=== PATIENT | female | born 1955 | race Caucasian/White ===

== ENCOUNTER 2022-02-12 12:51 | Outpatient (CLI) | payer MEDICARE, SELFPAY ==
--- NOTE | 2022-02-12 14:00 | CRLHL7_ITS ---
For Patients: As a result of the Century Cures Act, medical imaging exams and procedure reports are released immediately into your electronic medical record. You may view this report before your referring provider. If you have questions, please contact your health care provider. Indication: SOLITARY PULMONARY NODULE Technique: Noncontrast CT chest Please note that all CT scans at this facility use dose modulation, iterative reconstruction, and/or weight-based dosing when appropriate to reduce radiation dose to as low as reasonably achievable. Comparison: CT abdomen 09/26/2021 Findings: Improved appearance of the lung bases compared to the prior study with clearing of airspace densities. Patchy foci of thickened interlobular septa remain within the periphery of the right lower lobe and to a lesser extent within the left lower lobe. Similar findings also present in both upper lobes. No pleural effusion. There is no pneumothorax. A pleural based nodule is present along the right major fissure measuring 9 millimeters, series 3, image 36. This area was not included on the prior exam. No pleural effusion. No pneumothorax. No mediastinal, hilar or axillary adenopathy. Normal breast tissue. Gallbladder is nondistended. No calcified gallstones or biliary obstruction. Hiatal hernia is similar, measuring 6 centimeters. Mild vascular calcifications. No fracture. Impression: Clearing of infiltrates within both lower lobes. Mild pulmonary fibrosis noted in a peripheral distribution bilaterally. No adenopathy. Incidental 9 millimeter pleural-based nodule on the right, considered benign due to its pleural-based morphology. 6 centimeter hiatal hernia. Please note that all CT scans at this facility use dose modulation, iterative reconstruction, and/or weight-based dosing when appropriate to reduce radiation dose to as low as reasonably achievable. Dictated by Michael Middleton MD @ 02/12/2022 2:05:54 PM (Electronically Signed)
== END 2022-02-12 12:52 | disposition home or self-care (01) ==
LOC: CT 12:57
PROVIDERS: PCP Family Medicine; Visit Provider Family Medicine
DX: R91.1 Solitary pulmonary nodule (principal); J84.10 Pulmonary fibrosis, unspecified; K44.9 Diaphragmatic hernia without obstruction or gangrene
CPT/HCPCS: 71250; 80053; 80061

== ENCOUNTER 2022-03-04 13:28 | Emergency (ER) | payer MEDICARE, SELFPAY ==
[2022-03-04 14:05] VITALS: BP 104/59; PULSE 69; RESP 18; TEMP 36.9; O2SAT 97; BMI 41.6
--- NOTE | 2022-03-04 16:19 | CRLHL7_ITS ---
For Patients: As a result of the Cures Act, medical imaging exams and procedure reports are released immediately into your electronic medical record. You may view this report before your referring provider. If you have questions, please contact your health care provider. Indication: Fall onto left hip Technique: Left hip 3 views Comparison: None Findings: No acute fracture dislocation of the left hip. Visualized pelvis appears unremarkable. No significant degenerative arthrosis of the left hip. Impression: No fracture or dislocation of the left hip. Dictated by Daniel Mcdonald MD @ 03/04/2022 5:56:31 PM (Electronically Signed)
--- NOTE | 2022-03-04 16:19 | CRLHL7_ITS ---
For Patients: As a result of the Cures Act, medical imaging exams and procedure reports are released immediately into your electronic medical record. You may view this report before your referring provider. If you have questions, please contact your health care provider. Indication: Fall, recent surgery Technique: Right knee 2 views Comparison: None Findings/Impression: No acute fracture or traumatic malalignment is seen within the right knee on this two-view radiograph series. Suspect small knee effusion. Mild tricompartmental arthrosis. Suspect knee joint loose body. Dictated by Daniel Mcdonald MD @ 03/04/2022 5:45:29 PM (Electronically Signed)
--- NOTE | 2022-03-04 16:19 | CRLHL7_ITS ---
For Patients: As a result of the Century Cures Act, medical imaging exams and procedure reports are released immediately into your electronic medical record. You may view this report before your referring provider. If you have questions, please contact your health care provider. INDICATION: Fall. Vertigo. TECHNIQUE: CT of the head without contrast. Coronal and sagittal reformats are included. COMPARISON: None. FINDINGS: No acute intracranial hemorrhage. No mass effect or midline shift. No hydrocephalus or extra-axial collections. Patchy white matter hypoattenuation, typical for chronic microvascular ischemic change. No acute osseous abnormalities. Mastoid air cells and paranasal sinuses are clear. Normal soft tissues. IMPRESSION: IMPRESSION: 1. No acute intracranial abnormalities. Please note that all CT scans at this facility use dose modulation, iterative reconstruction, and/or weight-based dosing when appropriate to reduce radiation dose to as low as reasonably achievable. Dictated by Hebert Cramer MD @ 03/04/2022 5:32:14 PM (Electronically Signed)
--- NOTE | 2022-03-04 16:19 | CRLHL7_ITS ---
For Patients: As a result of the Century Cures Act, medical imaging exams and procedure reports are released immediately into your electronic medical record. You may view this report before your referring provider. If you have questions, please contact your health care provider. INDICATION: Fall with neck pain. TECHNIQUE: CT of the cervical spine without contrast. Coronal and sagittal reformats are included. COMPARISON: None. FINDINGS: Superior endplate deformities at C7 and T1 with minimal vertebral body height loss. Craniocervical junction alignment is maintained. Mild to moderate disc height loss most prominent at C5-6. Trace anterolisthesis at C3-4 and C4-5. At C5-6, right uncovertebral arthrosis with advanced neural foraminal stenosis. No high grade spinal canal stenosis as far as visualized. Imaged intracranial structures, cervical and paraspinous soft tissues are normal in appearance. The visualized pulmonary apices are clear. IMPRESSION: 1. Age-indeterminate superior endplate deformities at C7 and T1 with minimal vertebral body height loss. No fractures elsewhere. 2. Scattered cervical spondylosis. Please note that all CT scans at this facility use dose modulation, iterative reconstruction, and/or weight-based dosing when appropriate to reduce radiation dose to as low as reasonably achievable. Dictated by Hebert Cramer MD @ 03/04/2022 5:37:03 PM (Electronically Signed)
--- NOTE | 2022-03-04 16:19 | CRLHL7_ITS ---
For Patients: As a result of the Century Cures Act, medical imaging exams and procedure reports are released immediately into your electronic medical record. You may view this report before your referring provider. If you have questions, please contact your health care provider. INDICATION: Pain from T1 through T5 TECHNIQUE: Thoracic spine 3 view. COMPARISON: CT chest February 12, 2022. FINDINGS/IMPRESSION: Portions of the upper thoracic spine obscured due to superimposed osseous and soft tissue structures. No evidence of vertebral body height loss or traumatic malalignment. Mild multilevel anterior osteophytosis and intervertebral disc space narrowing. Dictated by Daniel Mcdonald MD @ 03/04/2022 5:48:03 PM (Electronically Signed)
[2022-03-04] MEDS: ACETAMINOPHEN 325 MG TABLET 650 MG PO (16:49)
--- NOTE | 2022-03-04 18:18 | CRLHL7_ITS ---
For Patients: As a result of the Century Cures Act, medical imaging exams and procedure reports are released immediately into your electronic medical record. You may view this report before your referring provider. If you have questions, please contact your health care provider. Indication: Buttock and hip pain Technique: CT examination of the pelvis was performed. Contrast was not administered. Imaging was acquired from the lower lumbar spine through the immediate subtrochanteric area bilaterally. Sagittal and coronal reformatted imaging was performed. Please note that all CT scans at this facility use dose modulation, iterative reconstruction, and/or weight-based dosing when appropriate to reduce radiation dose to as low as reasonably achievable. Comparison: None Findings: Regarding the soft tissues within the pelvis, there is fecal retention and diverticulosis. No diverticulitis. No free fluid, adenopathy or mass visualized. Regarding the soft tissues of the buttocks and pelvis, the muscles are symmetric and normal in appearance. No focal mass or collection. No abnormal bursal fluid collection. Regarding the osseous structures, there are degenerative changes of the visualized lower lumbar spine. Osseous structures of the pelvis including the hip joints appear normal. Impression: 1. There are degenerative changes lower lumbar spine. Osseous structures of the pelvis and left hip joint are otherwise unremarkable. 2. The soft tissues at and near the left hip joint and involving the left buttocks appear normal by CT. 3. Incidental diverticulosis Please note that all CT scans at this facility use dose modulation, iterative reconstruction, and/or weight-based dosing when appropriate to reduce radiation dose to as low as reasonably achievable. Dictated by Regis Moraes MD @ 03/04/2022 7:01:04 PM (Electronically Signed)
[2022-03-04] MEDS: OXYCODONE 5 MG TABLET 2.5 MG PO (18:30)
[2022-03-04] MEDS: ONDANSETRON ODT 4 MG TAB PO (18:30)
--- NOTE | 2022-03-04 20:17 | ED.NURSE ---
isntymed call about interaction btw sertaline and steven, md spaulding updated, verbal to tell [facility] to continue with prescription with no changes.
--- NOTE | 2022-03-05 00:47 | ED.GENADULT ---
HPI - General Adult General Date Seen: 03/05/22 Chief complaint: Hip Injury/Pain Stated complaint: Fall Hip and Head Pain Time Seen by Provider: 03/04/22 16:00 Source: patient, RN notes reviewed and old records reviewed Mode of arrival: wheelchair Limitations: language barrier History of Present Illness HPI narrative: Patient is a very pleasant [place]ian-speaking woman who has a history of hyperlipidemia anxiety and depression and recent knee surgery who comes to the emergency room for evaluation regarding dizziness, head and neck pain, left buttock pain and right knee pain. Patient states that she was walking into house when her feet became entangled in the rug and she fell forward. This happened on FridayMarch 02. She notes that she felt something crack in her left hip. Since that time she has had difficulty ambulating and uses a cane. She also notes that her head hurts she notes that this hurts from the back of her neck up into her forehead. It is associated with feeling dizzy when she gets up. She has been using Tylenol for pain and it has not really helped. Movement certainly increases her pain. She also shows me a video of her buttocks where it appears that she has a large area of ecchymosis. She has not had a loss of bowel or bladder control nor has she experience fever chills or cough. She also notes that when she fell she may have re-injured her right knee. She notes that in [place] in June she had arthroscopy and states that it was filled with fluid. Related Data Home Medications Medication Instructions Recorded Confirmed diclofenac sodium 1 % topical gel 2-4 TOPICAL QID 02/06/22 02/06/22 Previous Rx's Medication Instructions Recorded omeprazole 40 mg capsule,delayed 40 mg PO QDAY #90 cap 02/06/22 release rosuvastatin 20 mg tablet 20 mg PO QDAY #90 tab 02/06/22 sertraline 100 mg tablet 100 mg PO DAILY #90 tab 02/06/22 celecoxib 100 mg capsule 100 mg PO BID PRN #60 cap 02/15/22 Allergies Allergy/AdvReac Type Severity Reaction Status Date / Time No Known Allergies Allergy Unverified 02/06/22 09:57 Review of Systems Status of ROS: Reports: 10 or more systems reviewed and unremarkable except as noted in History and below Const: Reports: fatigue; Denies: fever or chills Eyes: Denies: change in vision or blurry vision ENMT: Reports: neck pain; Denies: throat pain or difficulty swallowing Cardio: Denies: chest pain, palpitations, swelling of feet/ankles or shortness of breath with exertion Resp: Denies: shortness of breath, cough or wheezing GI: Denies: abdominal pain, nausea, vomiting or difficulty swallowing : Denies: painful urination Musculo: Reports: back pain, neck pain and extremity pain Integ/Breast: Denies: rash Neuro: Reports: headache and dizziness; Denies: numbness in extremities Psych: Reports: anxiety Endo: Reports: fatigue Allergy/Immuno: Denies: wheezing PFSH PFS Medical History History of vitamin D deficiency Surgical History History of arthroscopy of right knee (06/2021) History of delivery History of right knee surgery Family History Brother Prostate cancer Throat cancer Mother Tremors of nervous system Social History Narrative: . Moved to this area from [place] in the fall of 2020 to be closer to family. Originally from [place] I believe. Never smoker. Activity very limited. Smoking Status: Never smoker Exam Narrative: Exam Narrative: Patient is alert and oriented. EOM is full with no nystagmus in extremes of view head is atraumatic normocephalic. She has tenderness noted over the paraspinous musculature on her cervical spine and over the T1-3 4 5 vertebrae. No evidence of bruising at this site. Heart is with a regular rate and rhythm and lungs are clear abdomen is soft nontender. She has large area of ecchymosis noted on her right buttock extending into the gluteal cleft from the posterior and superior SI area she has pain when standing. She is preferring not to move and reclines in chair in exam 4. Ms. Sensation is fully intact. Const: Vital Signs, click to edit/add: Vital Signs - 24 hr 03/04/22 14:05 Temperature 98.4 F Pulse Rate [Right Pulse Oximeter] 69 Respiratory Rate 18 Blood Pressure [Ri ght Upper Arm] 104/59 L Pulse Oximetry 97 Documenting provider has reviewed patient's vital signs: yes Course Course Hospital Course: With the assistance of tufting machine operator I do suggest CTs of the head neck. I suggest plain films of the thoracic spine left hip and pelvis as well as right knee. Reevaluation(s) Reevaluation #1: Patient is requesting Tylenol and this is given to her 650 mg p.o.. She notes that it really has not helped very much and thus we do give her 2.5 mg of oral oxycodone. Discussed negative head with patient. Cervical spine does show some abnormalities of age indeterminate status. A soft collar is placed. Discuss that the pelvic x-ray is negative. Would suggest CT as patient still is unable to stand. Vital Signs Vital signs: Initial Vital Signs Temperature 98.4 F 03/04/22 14:05 Temperature Source Temporal Artery Scan 03/04/22 14:05 Pulse Rate 69 03/04/22 14:05 Pulse Rhythm 03/04/22 14:05 Respiratory Rate 18 03/04/22 14:05 Blood Pressure 104/59 L 03/04/22 14:05 Blood Pressure Mean 74 03/04/22 14:05 Pulse Oximetry 97 03/04/22 14:05 Oxygen Delivery Method 03/04/22 14:05 Vital Signs Temperature 98.4 F 03/04/22 14:05 Pulse Rate 69 03/04/22 14:05 Respiratory Rate 18 03/04/22 14:05 Blood Pressure 104/59 L 03/04/22 14:05 Pulse Oximetry 97 03/04/22 14:05 Temperature 98.4 F 03/04/22 14:05 Pulse Rate 69 03/04/22 14:05 Respiratory Rate 18 03/04/22 14:05 Blood Pressure 104/59 L 03/04/22 14:05 Pulse Oximetry 97 03/04/22 14:05 Medical Decision Making MDM Narrative Medical decision making narrative: 1. Concussion-patient has a negative head CT but describes dizziness when standing up. Suggest light activity at this time. No evidence epidural or subdural hematoma. 2. Cervical strain-patient does have superior endplate abnormalities at C7 and T1. No obvious bony fractures. Placed in a soft collar at this time. Suggest follow-up with primary MD for MRI. No upper extremity motor deficits. 3. Thoracic spine pain-no obvious fracture but body habitus inhibited ability to completely visualize this area. No external signs of trauma or ecchymosis. 4. Left hip and right buttock pain-no evidence of fracture on plain film or subsequent CT. 5. Right knee pain-patient does have fluid in right knee and a free-floating body that is small. I am unsure if this is an acute finding but do suggest follow-up with orthopedics. 6. Disposition-patient will be discharged home. We have given her a small amount of oxycodone to use for pain not relieved by Tylenol. I have asked her to make sure she uses a stool softener and surely this will make her constipated. Initially her a believe is with her. Her daughter now comes and is speaks [place] and thus we do speak of all of the issues today. Patient is to return to the emergency room as needed. I do suggest follow-up for MRI of the cervical spine. This will include the upper aspect of the thoracic spine as well. Medical Records Medical records reviewed: Yes I reviewed the patient's medical records Imaging Data CT scan - head: Attestation: I have reviewed the pertinent imaging results. My impression: No acute findings Radiologist's impression: No acute finding Cervical spine: Attestation: I have reviewed the pertinent imaging results. My impression: No obvious fractures. Radiologist's impression: Age indeterminate superior endplate deformities at C7 and T1 with minimal vertebral body height loss. Scattered cervical spondylosis Thoracic spine: Attestation: I have reviewed the pertinent imaging results. My impression: No obvious acute fractures Radiologist's impression: No fractures. However body habitus inhibits ability to clearly see details of upper spine. Pelvis and left hip: Attestation: I have reviewed the pertinent imaging results. My impression: No acute fractures on both plain film and CT Radiologist's impression: No acute fractures on plain film and CT Discharge Plan Discharge Clinical Impression: Concussion, Acute pain of left hip, Acute pain of left knee, Cervical pain Patient Disposition: Home, Self-Care Condition: Improved Additional Instructions: Soft cervical collar. Use a walker for more support when ambulating For pain you may use Tylenol as needed. For continued pain you may use oxycodone. Oxycodone is a narcotic and you will want to make sure you take a stool softener with it. This may also make you dizzy so be very careful when walking. Follow-up with your regular doctor for: MRI of the neck if you have continued pain Recheck of your right knee because it has some fluid in it on x-ray. Rest and push fluids. Prescriptions: No Action Prevnar 13 (PF) 0.5 mL syringe 0.5 ml IM ONCE Qty: 1 0RF diclofenac sodium 1 % gel 2-4 topical QID 0RF omeprazole 40 mg capsule,delayed release(DR/EC) 40 mg PO QDAY Qty: 90 3RF sertraline 100 mg tablet 100 mg PO DAILY Qty: 90 3RF rosuvastatin 20 mg tablet 20 mg PO QDAY Qty: 90 3RF celecoxib 100 mg capsule 100 mg PO BID PRN (Reason: pain) Qty: 60 3RF Follow Up/Referrals: Moses Mota MD [Primary Care Provider] - Stand Alone [facility] Inst[facility]
== END 2022-03-04 20:30 | disposition home or self-care (01) ==
PROVIDERS: Emergency Provider Family Medicine; PCP Family Medicine
DX: S06.0X0A Concussion without loss of consciousness, initial encounter (principal); W01.0XXA Fall on same level from slipping, tripping and stumbling without subsequent striking against object, initial encounter; M25.552 Pain in left hip; M25.562 Pain in left knee; M54.2 Cervicalgia
CPT/HCPCS: 70450; 72070; 72125; 72192; 73502; 73560; 99284; A9270

== ENCOUNTER 2022-09-12 14:10 | Outpatient (CLI) | payer MEDICARE, SELFPAY ==
--- NOTE | 2022-09-12 14:40 | CRLHL7_ITS ---
For Patients: As a result of the Century Cures Act, medical imaging exams and procedure reports are released immediately into your electronic medical record. You may view this report before your referring provider. If you have questions, please contact your health care provider. BILATERAL DIGITAL SCREENING MAMMOGRAM WITH TOMOSYNTHESIS AND COMPUTER-AIDED DETECTION CLINICAL HISTORY: Routine screening exam. COMPARISON: None. TECHNIQUE: Digital mammogram in CC and MLO projections including computer-aided detection (CAD). Tomosynthesis and CAD utilized. BREAST COMPOSITION: There are areas of scattered fibroglandular density. FINDINGS: RIGHT Breast: Focal asymmetric density upper outer quadrant 7 cm from the nipple. LEFT Breast: No suspicious findings. IMPRESSION: RIGHT breast asymmetry/mass. RECOMMENDATIONS: Additional mammographic views of the RIGHT breast including 3D spot compression CC/MLO. RIGHT breast ultrasound may also be required. BI-RADS Category 0: Incomplete: Need Additional Imaging Evaluation and/or Prior Mammograms for Comparison [facility] will contact the patient for follow-up. A lay language report of this examination will be provided to the patient. Dictated by Michael Middleton MD @ 09/13/2022 8:11:32 AM jj/Dictated by: Michael Middleton MD @ 09/13/2022 8:11:00 AM (Electronically Signed)
== END 2022-09-12 14:11 | disposition home or self-care (01) ==
LOC: MAMMO 14:13
PROVIDERS: PCP Family Medicine; Visit Provider Family Medicine
DX: Z12.31 Encounter for screening mammogram for malignant neoplasm of breast (principal); N63.10 Unspecified lump in the right breast, unspecified quadrant
CPT/HCPCS: 77063; 77067; T1013

== ENCOUNTER 2022-09-13 08:01 | Outpatient (CLI) | payer MEDICARE, SELFPAY ==
--- NOTE | 2022-09-13 08:15 | CRLHL7_ITS ---
For Patients: As a result of the Century Cures Act, medical imaging exams and procedure reports are released immediately into your electronic medical record. You may view this report before your referring provider. If you have questions, please contact your health care provider. Indication: Headache. Technique: Multiplanar, multisequence MRI of the brain was performed without and with intravenous contrast. Contrast: 15 cc Dotarem. Comparison: None relevant available at this institution. Findings: Slight thinning of the corpus callosum. The pituitary gland and clivus appear intact. Mild degenerative change visualized upper cervical spine. There is no restricted diffusion. No intracranial hemorrhage. The ventricles are proportionate to the cerebral sulci. The 4th ventricle appears midline. The basal cisterns appear patent. No abnormal extra-axial fluid collection identified. Mild parenchymal volume loss. Scattered T2 FLAIR hyperintense foci within the subcortical and periventricular white matter, favored to represent chronic ischemic microvascular disease. There is no intracranial mass, abnormal mass-effect or midline shift identified. No abnormal enhancement. Major intracranial vascular flow voids appear grossly intact. Both globes are preserved. Mild paranasal sinus mucosal disease. Impression: 1. No acute/subacute infarct. 2. Mild chronic ischemic microvascular disease. Dictated by Prosper Canseco MD @ 09/13/2022 11:40:34 AM (Electronically Signed)
== END 2022-09-13 08:02 | disposition home or self-care (01) ==
PROVIDERS: PCP Family Medicine; Visit Provider Family Medicine
DX: R51.9 Headache, unspecified (principal); I67.82 Cerebral ischemia; G89.29 Other chronic pain
CPT/HCPCS: 70553; T1013; A9575

== ENCOUNTER 2022-09-19 08:35 | Outpatient (CLI) | payer MEDICARE, SELFPAY ==
--- NOTE | 2022-09-19 08:45 | CRLHL7_ITS ---
For Patients: As a result of the Cures Act, medical imaging exams and procedure reports are released immediately into your electronic medical record. You may view this report before your referring provider. If you have questions, please contact your health care provider. DIGITAL DIAGNOSTIC RIGHT MAMMMOGRAM USING TOMOSYNTHESIS AND COMPUTER-AIDED DETECTION RIGHT BREAST ULTRASOUND CLINICAL HISTORY: RIGHT breast mass/asymmetry. COMPARISON: 09/12/2022. TECHNIQUE: Digital RIGHT mammogram in two projections. Tomosynthesis and CAD utilized. Real-time ultrasound imaging of RIGHT breast with imaging documentation. BREAST COMPOSITION: There are areas of scattered fibroglandular density. FINDINGS: 3D spot compression CC/MLO RIGHT breast mammogram images submitted. Decreased conspicuity of previously noted asymmetric density. No architectural distortion or suspicious masses. Benign calcifications. Targeted RIGHT breast ultrasound performed in the lower outer quadrant 8 o`clock 4 cm from the nipple corresponding with the density on screening mammogram. No fibrocystic changes or solid masses. IMPRESSION: Normal additional views RIGHT breast and targeted ultrasound RIGHT breast. No evidence of malignancy. RECOMMENDATIONS: Annual BILATERAL screening mammography. Results and recommendations discussed with the patient through an foreign language interpreter. BI-RADS Category 2: Benign A lay language report of this examination will be provided to the patient. Dictated by Michael Middleton MD @ 09/19/2022 9:56:48 AM jj/Dictated by: Michael Middleton MD @ 09/19/2022 9:56:00 AM (Electronically Signed)
--- NOTE | 2022-09-19 09:15 | CRLHL7_ITS ---
For Patients: As a result of the Cures Act, medical imaging exams and procedure reports are released immediately into your electronic medical record. You may view this report before your referring provider. If you have questions, please contact your health care provider. PLEASE SEE DIGITAL DIAGNOSTIC RIGHT MAMMOGRAM PERFORMED SAME DAY CRL:[email or web address] [email or web address]/Dictated by: Michael Middleton MD @ 09/19/2022 9:56:00 AM (Electronically Signed)
== END 2022-09-19 08:36 | disposition home or self-care (01) ==
LOC: US 08:36
PROVIDERS: PCP Family Medicine; Visit Provider Family Medicine
DX: N63.10 Unspecified lump in the right breast, unspecified quadrant (principal); R92.8 Other abnormal and inconclusive findings on diagnostic imaging of breast
CPT/HCPCS: 76642; 77065; G0279

== ENCOUNTER 2023-05-07 10:33 | Outpatient (CLI) | payer OTHER, SELFPAY | END 2023-05-07 10:34 | disposition home or self-care (01) | PROVIDERS: PCP Family Medicine; Visit Provider Family Medicine | DX: E78.5 Hyperlipidemia, unspecified (principal) | CPT/HCPCS: 80053; 80061 ==

== ENCOUNTER 2023-07-07 12:19 | Emergency (ER) | payer OTHER, SELFPAY ==
[2023-07-07 12:27] VITALS: BP 109/80; PULSE 81; RESP 16; TEMP 36.1; O2SAT 94; BMI 43.5
== END 2023-07-07 16:11 | disposition left against medical advice (07) ==
LOC: ED 15:55
PROVIDERS: Emergency Provider Emergency Medicine Emergency Medical Services; PCP Family Medicine
DX: Z53.21 Procedure and treatment not carried out due to patient leaving prior to being seen by health care provider (principal)

== ENCOUNTER 2023-11-25 10:29 | Outpatient (CLI) | payer MEDICARE, SELFPAY ==
--- OUTSIDE RECORDS SUMMARY | 2023-11-25 10:32 | XMS_ITS | Clinical Summary ---
Author Name Unknown Organization [facility] Address [place], [place] [address] Care Team Providers Care Supervisor [employer] Name Role Phone Michela Corona Primary Care Provider Unavail able Allergies Active Allergy Reactions Criticality Noted Date Comments Aspirin *Unknown 01/30/2020 Medications Medication Sig Dispensed Refills Start Date End Date Status omeprazole (PRILOSEC) 10 mg capsule Take 1 Capsule (10 mg) by mouth once daily before a meal. 0 02/13/2021 Active cyanocobalamin (Vitamin B-12) 1,000 mcg tabletIndications:Vi tamin B12 deficiency Take 1 Tablet (1,000 mcg) by mouth once daily. Taking 1 tablet a week 90 Tablet 3 03/01/2021 Active gabapentin (NEURONTIN) 100 mg capsuleIndications:B ilateral leg numbness Take 2 caps at night of 1 week, then increase to 3 caps(300mg) at night. 90 Capsule 2 05/15/2021 Active meclizine (ANTIVERT) 25 mg tabletIndications:Di zziness Take 1 Tablet (25 mg) by mouth 3 times daily if needed for Vertigo, Motion Sickness or Nausea/Vomiting. 30 Tablet 08/22/2022 Active benzonatate (TESSALON) 100 mg capsuleIndications:V iral URI with cough Take 1 Capsule (100 mg) by mouth 3 times daily if needed for Cough. 20 Capsule 05/24/2023 Active Active Problems No known active problems Social History Tobacco Use Types Packs/Day Years Used Date Smoking Tobacco: Never Smokeless Tobacco: Never Tobacco Cessation:Counseling Given: Yes Alcohol Use Standard Drinks/Week Comments Not Currently 0 (1 standard drink = 0.6 oz pur e alcohol) PHQ-2 Answer Date Recorded PHQ-2 TOTAL SCORE 3 03/01/2021 Social Connections Answer Date Recorded Frequency of Communication with Friends and Fami ly Not on file 08/11/2021 Financial Resource Strain Answer Date R ecorded Difficulty of Paying Living Expenses Not on file 08/11/2021 Difficulty of Paying Living Expenses Not on file 08/11/2021 Sex and Gender Information Value Date Recorded Sex Assigned at Not on file Gender Identity Not on file Sexual Orientation Not on file Obstetrics History Last Filed Vital Signs Vital Sign Reading Time Taken Comments Blood Pressure 106/81 07/28/2023 6:12 PM [employer] Pulse 84 07/28/2023 6:12 PM [employer] Temperature 36.7 ??C (98.1 ??F) 07/28/2023 6:12 PM CS T Respiratory Rate 20 07/28/2023 6:12 PM [employer] Oxygen Saturation 96% 07/28/2023 6:12 PM [employer] Inhaled Oxygen Concentration - - Weight 97.5 kg (215 lb) 07/28/2023 6:12 PM [employer] Height 154.9 cm (5' 1) 07/28/2023 6:12 PM [employer] Body Mass Index 40.62 07/28/2023 6:12 PM [employer] Plan of Treatment Health Maintenance Due Date Last Done Comments Tdap 01/09/1967 Hepatitis C screening for age 18-79 01/09/1974 Tetanus booster 1976 Lipids for age 45-75 01/09/2001 Mammogram for age 45-75 01/09/2001 Zoster (shingles) series for age 50+ (1 of 2) 01/09/2006 DEXA/DXA scan for age 65+ 01/09/2021 Pneumococcal series for age 65+ (1 of 1 - PCV) 01/09/2021 BMI (ht and wt on same day) for age 18+ 02/13/2022 02/13/2021 Depression screening for age 12+ 03/01/2022 03/01/2021, 03/01/2021, 03/01/2021 COVID-19 vaccine series (2022- season) 2023 Fecal testing non-DNA (FIT,FOBT,iFOBT) for age 45-75 08/02/2023 08/02/2022 Influenza for age 65+ 04/11/2024 Procedures Procedure Name Priority Date/Time Associated Diagnosis Comments OCCULT BLOOD IFOBT STOOL Routine 08/02/2022 12:54 PM [employer] Screening for colorectal cancer from Last 3 Months or Most Recently Relevant to Health Maintenance Results * OCCULT BLOOD IFOBT STOOL (08/02/2022 12:54 PM [employer]) STOOL BLOOD ,IFOBT Negative Negative 08/02/2022 2:10 PM [employer] [facility] Stool STOOL SPECIMEN / Unknown Non-Blood / Unknown 08/02/2022 12:54 PM [employer] 08/02/2022 12:54 PM [employer] Sheri Boston DO LABORATORY [facility] [address] [place] [address], from Last 3 Months or Most Recently Relevant to Health Maintenance Care Teams Supervisor [employer] Relationship Specialty Start Date End Date Michela Corona PCP - General 08/22/22
--- NOTE | 2023-11-25 12:03 | W.ANESCHARGE ---
Anesthesia Charges Start Date/Time Anesthesia Start Date: 11/25/23 Anesthesia Start Time: 11:03 Stop Date/Time Anesthesia Stop Date: 11/25/23 Anesthesia Stop Time: 11:59
--- NOTE | 2023-11-25 12:24 | W.ANESCHARGE ---
Anesthesia Charges Start Date/Time Anesthesia Start Date: 11/25/23 Anesthesia Start Time: 11:03 Stop Date/Time Anesthesia Stop Date: 11/25/23 Anesthesia Stop Time: 11:59
== END 2023-11-25 10:30 | disposition home or self-care (01) ==
LOC: OP CLINIC 10:30
PROVIDERS: PCP Family Medicine; Visit Provider Surgery
DX: Z12.11 Encounter for screening for malignant neoplasm of colon (principal); K63.5 Polyp of colon; K57.30 Diverticulosis of large intestine without perforation or abscess without bleeding; K64.9 Unspecified hemorrhoids; K62.1 Rectal polyp; R13.10 Dysphagia, unspecified; K44.9 Diaphragmatic hernia without obstruction or gangrene; K22.89 Other specified disease of esophagus
CPT/HCPCS: 00813; 43239; 45385; 88305; 88342; T1013; J2704

== ENCOUNTER 2024-08-18 13:58 | Outpatient (CLI) | payer MEDICARE, SELFPAY ==
--- NOTE | 2024-08-18 14:00 | CRLHL7_ITS ---
For Patients: As a result of the Century Cures Act, medical imaging exams and procedure reports are released immediately into your electronic medical record. You may view this report before your referring provider. If you have questions, please contact your health care provider. BILATERAL SCREENING MAMMOGRAM WITH COMPUTER-AIDED DETECTION AND TOMOSYNTHESIS TECHNIQUE: CC and MLO views were obtained. These mammographic images have been obtained using full-field digital technique. These mammographic images were interpreted with the benefit of computer-aided detection. Breast Tomosynthesis was used in this interpretation. COMPARISON FILM: 09/19/22, 09/12/22. FINDINGS: There are scattered areas of fibroglandular density. IMPRESSION: There is no radiographic evidence for malignancy. ASSESSMENT: BI-RADS Category 2: Benign RECOMMENDATION: Routine screening mammogram in 1 year. A lay language report of this examination will be provided to the patient. Michael Middleton M.D. Diagnostic Radiologist [email or web address] SP/Dictated by: Michael Middleton MD @ 08/19/2024 9:33:00 AM (Electronically Signed)
--- NOTE | 2024-08-18 14:30 | CRLHL7_ITS ---
For Patients: As a result of the Century Cures Act, medical imaging exams and procedure reports are released immediately into your electronic medical record. You may view this report before your referring provider. If you have questions, please contact your health care provider. XR DXA Bone Mineral Density (BMD) Reason for exam: Asymptomatic menopausal state. Current height (inches): 62.0 Weight (lbs.): 210.0 Menopause age: 59 Ethnicity: White 1. Have you had a previous hip or vertebral fracture? No. 2. Have you had any fractures during your adult life which did not result from significant trauma (e.g., auto accident)? No. 3. Did either of your parents have a hip fracture? No. 4. Do you smoke? No. 5. Have you ever taken Glucocorticoids? No. 6. Do you have rheumatoid arthritis? No. 7. Do you have secondary osteoporosis? No. 8. Do you drink 3 or more alcoholic drinks per day? No. 9. Are you being treated for osteoporosis? No. 10. Have you ever taken any of the following medications: Actonel, Evista, Fosamax, Miacalcin, Reclast, Boniva, Forteo, HRT (i.e., estrogen/hormone therapy), Protelos, Prolia, Vitamin D, Calcium, other ??? please specify. ANSWER: Yes; vitamin D an calcium. 11. Do you have any of the following medical conditions: Anorexia or bulimia, asthma or emphysema, end stage renal disease, hyperparathyroidism, any seizure disorders, cancer, inflammatory bowel diseases, hysterectomy, other ??? please specify. ANSWER: No. 12. What was your maximum height (inches)? 63. 13. Do you perform weightbearing exercise regularly? No. 14. Do you regularly consume dairy products? Yes. 15. Do you drink caffeinated beverages? Yes. 16. At what age did your period start? 12. 17. Are you premenopausal? No. 18. How many full-term pregnancies have you had? 5. 19. Have you ever missed your period for more than 6 months in a row (not including or menopause)? No. TECHNIQUE: Bone mineral density study was performed using the [employer]. FINDINGS: The results of the study expressed as bone mineral density (BMD) are as follows: Lumbar Spine L1 to L3: BMD: 0.993 g/cm2. T-score: -0.2. Z-score: 1.7 Neck Left: BMD: 0.727 g/cm2. T-score: -1.1. Z-score: 0.6. Right: BMD: 0.671 g/cm2. T-score: -1.6. Z-score: 0.1. Total Left: BMD: 0.997 g/cm2. T-score: 0.5. Z-score: 1.9. Right: BMD: 0.956 g/cm2. T-score: 0.1. Z-score: 1.5. IMPRESSION: Osteopenia. FRAX 10-year Fracture Risk Major Osteoporotic Fracture: 9.0% Hip Fracture: 1.2% Reported Risk Factors: [place] () Neck BMD = 0.671, BMI = 38.4. MICHAEL MUNGUIA M.D. Diagnostic Radiologist [email or web address] Transcribed: 4:[address]/Dictated by: Michael Munguia MD @ 08/19/2024 10:53:00 AM (Electronically Signed)
== END 2024-08-18 13:59 | disposition home or self-care (01) ==
LOC: MAMMO 13:59
PROVIDERS: PCP Family Medicine; Visit Provider Family Medicine
DX: Z12.31 Encounter for screening mammogram for malignant neoplasm of breast (principal); Z78.0 Asymptomatic menopausal state; M85.89 Other specified disorders of bone density and structure, multiple sites
CPT/HCPCS: 77063; 77067; 77080; T1013

== ENCOUNTER 2024-08-23 10:40 | Outpatient (CLI) | payer MEDICARE, SELFPAY | END 2024-08-23 10:41 | disposition home or self-care (01) | LOC: NFLDREF 08-30 23:50 | PROVIDERS: PCP Family Medicine; Referring Provider Family Medicine; Visit Provider Family Medicine | DX: E78.5 Hyperlipidemia, unspecified (principal) | CPT/HCPCS: 80053; 80061 ==

== ENCOUNTER 2024-11-14 13:59 | Emergency (ER) | payer MEDICARE, SELFPAY ==
[2024-11-14 14:02] VITALS: BP 144/79; PULSE 90; RESP 18; TEMP 36.4; O2SAT 93; BMI 41.6
--- OUTSIDE RECORDS SUMMARY | 2024-11-14 14:02 | XMS_ITS | Data Portability ---
Author Organization [place] [facility] [employer] Address [address] [place] [address] Assessment Encounter Date Assessment Date Assessment LastModified by Organization Details LastModified Time 10/05/2024 10/05/2024 Discussed medical conditions with patient today. Obtained three weightbearing radiographs of the right foot and reviewed findings with patient as noted above. Debrided nails as documented without incident. I advised the patient to avoid cutting the nails too deeply at the corners to prevent infection. I recommended trimming the nails straight across and keeping the feet clean and dry. I instructed the patient to return if signs of infection, such as redness, swelling, or drainage, develop. For the pain in the right foot, I recommended considering custom orthotics to redistribute pressure away from the ball of the foot. I explained that the orthotics could be modified with padding to alleviate pressure on the affected area. I applied a temporary felt pad directly to the skin of the right foot to demonstrate the concept and provided an additional pad for use at home on one of her shoe's insoles. I discussed the option of a short CAM boot if the pain persists or worsens. I advised the patient to bring her current shoes to the next visit for evaluation. I also recommended avoiding prolonged walking or standing and using supportive footwear. The patient was instructed to follow up in two weeks for reassessment and to discuss the effectiveness of the current treatment plan. All questions were answered, and the patient expressed understanding of the plan. Total time spent on the E/M service was 45 minutes, which included reviewing patient history, performing a medically appropriate examination, counseling the patient, and documenting clinical information. This time excludes any procedures or imaging potentially obtained during this visit. [email or web address] Not available 10/05/2024 15:37:47 Plan of Treatment Reminders Order Date Submit Date Provider Last Modified By Organization Details Last Modified Time Details Appointments None record ed. Lab None record ed. Referral None record ed. Procedures None record ed. Surgeries None record ed. Imaging None record ed. Medication Orders None record ed. Patient TargetsNo targets recorded. Patient InstructionsNo instructions recorded. Reason for Referral None Reported. Procedures Surgical History Date Name Laterality Status Provider Name and Address Organization Details Recorded Time NAIL DEBRIDEMENT DR Arti MYERS, DPM [address] [place], [address], [facility] - [facility] 10/05/2024 15:34:47 Imaging Results None recorded. Procedure Notes None recorded. Medical Equipment None Reported. Allergies No known drug allergies Medications Name Sig Start Date Stop Date Status Note LastModified by Organization Details LastModified Time tizanidine 4 mg tablet TAKE 1 TABLET BY MOUTH EVERY 6 HOURS NEEDED FOR MUSCLE SPASM active Not Available Not Available No t Available sulfamethoxa zole 800 mg-trimethop rim 160 mg tablet TAKE 1 TABLET BY MOUTH TWICE DAILY FOR 5 DAYS - STOP CEFADROXIL active Not Available Not Available N ot Available prednisolone acetate 1 % eye drops,suspen alok SHAKE LIQUID AND INSTILL 1 DROP IN RIGHT EYE TWICE DAILY FOR 2 WEEKS active Not Available Not Available Not Available cephalexin 500 mg capsule active Not Available Not Available Not Available esomeprazole magnesium 40 mg capsule,dat yed release TAKE 1 CAPSULE BY MOUTH ONCE DAILY BEFORE A MEAL active Not Available Not Available No t Available neomycin-trinidad ymyxin-dexam eth 3.5 mg/mL-10,000 unit/mL-0.1% eye drops INSTILL 1 DROP INTO AFFECTED EYE(S) THREE TIMES DAILY active Not Available Not Available No t Available omeprazole 20 mg capsule,dat yed release TAKE 1 CAPSULE BY MOUTH ONCE DAILY active Not Available Not Available No t Available mirtazapine 15 mg tablet TAKE 1 TABLET BY MOUTH EVERY DAY AT BEDTIME active Not Available Not Available No t Available rosuvastatin 20 mg tablet TAKE 1 TABLET BY MOUTH ONCE DAILY active Not Available Not Available No t Available rosuvastatin 40 mg tablet TAKE 1/2 TABLET (20MG) BY MOUTH EVERY DAY active Not Available Not Available No t Available mirtazapine 7.5 mg tablet TAKE 1 TABLET BY MOUTH AT BEDTIME active Not Available Not Available No t Available peg 3350-electro lytes 236 gram-22.74 gram-6.74 gram-5.86 gram solution DRINK 240 ML EVERY 10 MINUTES UNTIL FECAL EFFLUENT IS CLEAR active Not Available Not Available No t Available Vitals Date Recorded Body height Body mass index (BMI) Body weight Provider Name and Address Organization Details Last Updated DateTime 10/05/2024 154.94 cm 39.7 kg/m2 68954.4 g Winnie Narvaez [place] - [facility] 10/05/2024 14:51:30 Social History None recorded. Functional Status None recorded. Mental Status None recorded. Family History Nothing Reported. Medical History No medical history recorded. Gynecological HistoryNo gynecological history recorded. 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 7103712398 258742 M20.41 Acquired h ammer toe of lesser toe of left foot 9174266826 0076899 M20.42 Health Concerns Section Related Observation LastModified by Organization Detai ls LastModified Time None Recorded Concern Status LastModified by Organization Details LastModified Time None Recorded Advance Directives Directive None Recorded Payers Encounter Date Sequence Insurance Name Policy Number Policy French Covered Member ID French Member ID Guarantor Name 10/05/2024 1 [facility] (MEDICARE REPLACEMENT/A DVANTAGE - PPO) [id number] Keiko López [id number] Keiko López Notes Date Note Type Note Provider Name and Address Organization Details Recorded Time 10/05/2024 text/html The patient presents today with complaints of pain associated with ingrown toenails and a painful callus on the bottom of the right foot. Of note, patient speaks scottish and translation was obtained through her daughter. The patient reports that the pain in the right foot has been ongoing for many years and is severe enough to prevent her from standing or bearing weight at times. She has attempted treatments such as rolling her foot on a bottle with warm water and performing stretches with bands, but these have not provided relief. She has also previously used orthopedic shoes, which she states worsened the pain. The patient recalls receiving an injection in [place] for the pain, which provided only minimal relief. She denies using any anti-inflammatory medications for the condition. The patient reports that the ingrown toenails affect both feet, especially the first, second, and third toes on both sides of each nail. She has attempted to trim the nails herself but has caused injury to the surrounding skin. She denies any current signs of infection but notes that the nails curve inward, causing discomfort.The patient primarily wears house shoes and occasionally gym shoes. She has tried store-bought inserts but does not currently use any specialized orthotics. She reports that her pain worsens with activity. She has been more active recently, which may have exacerbated her symptoms. KENNEDI MYERS, MIKA [address] [place], [address], [facility] - [facility] 10/05/2024 15:37:51 OBGyn Episode No OBEpisode recorded.
--- OUTSIDE RECORDS SUMMARY | 2024-11-14 14:02 | XMS_ITS | Clinical Summary ---
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 Phone Leandra Song Unavailable Unavailable Conditions or Problems Problem Name Problem Code Onset Date Status Entry Date Provider Comment Standard Description Annotate Headache, post traumatic 72101659 (SNOMED CT) Active Jordi Burrows MD Posttraumatic headache Medications Medication Instructions Start Date Stop Date Generic Name NDC Provider SERTRALINE HCL 100 MG TABS sertraline 07325493393 Jordi Burrows MD OMEPRAZOLE 40 MG CPDR omeprazole 71212984132 Jordi Burrows MD ROSUVASTATIN CALCIUM 20 MG TABS rosuvastatin 48268992177 Jordi Burrows MD OMEPRAZOLE 10 MG CPDR Take 1 Capsule (10 mg) by mouth once daily before a meal. omeprazole 17555801207 QIEUSER QIEUSER GABAPENTIN 100 MG CAPS Take 2 caps at night of 1 week, then increase to 3 caps(300mg) at night. gabapentin 25855012454 QIEUSER QIEUSER VITAMIN B-12 1000 MCG TABS Take 1 Tablet (1,000 mcg) by mouth once daily. Taking 1 tablet a week cyanocobalamin (vitamin b-12) 76279417365 QIEUSER QIEUSER Medications Administered No information available. 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 smoking status MEDS REVIEW Done Documenta tion of current medications (procedure) Internal Other: Verbal Autho rization/Emergency Contact - OBS VERBAL_EMER DONE Verbal au thorization and emergency contact Internal Other: Authorizatio n - OBS [email or web address] Yes Authoriza tion: Release of Information - Authorize [facility] - Payment and Healthcare Operations ROIAUTHOTHER Yes Authoriz ation: Release of Information - Authorize Others/Insurance - Payment and Healthcare Operations HIECONSENT Yes Consent To Release information to the Health Information Exchange (HIE) [email or web address] Yes Authorizat ion: Authorization for [facility] to leave messages, voicemail, send text messages, send emails AUTHRELHCARE Yes Authoriz ation: Release/Retrieval of Information to/from Healthcare Facilities, Pharmacy Benefit Payers and Providers AUTHPRIVPRAC Yes Authoriz ation: Notice of privacy practices AUTHBENEFIT Yes Authoriza tion: Assignment of Benefits and Payment Agreement Plan of Care Type Date Detail Pending order Follow up teleme dicine Pending order Follow up teleme dicine Pending order Patient Instruct ions Procedures Code Procedure Name Date Entry Date [facility]-[id number] Documentation of current medicatio ns CPT-70331 Occipital nerve bloc k (Greater ONB) unilateral CPT-58094 Lesser ONB/ 3rd ONB/ Auricular, unilatera l ORDERS Patient Instructions CPT-36289 Trigeminal nerve blo ck/ Supraorbital/ Supratrochlear x1 Vital Signs No information available. Immunizations No information available. Advance Directives No information available.
--- OUTSIDE RECORDS SUMMARY | 2024-11-14 14:02 | XMS_ITS | Continuity of Care Document ---
Author Organization [place] - [facility] [place] [facility] Address [address] [place] [address] [address] [address] Assessment Encounter Date Assessment Date Assessment LastModified [...] Organization Details Recorded Time NAIL DEBRIDEMENT DR Chi completed KENNEDI MYERS, DPM [address] [place], [address], [facility] [...] Updated DateTime 10/05/2024 154.94 cm 39.7 kg/m2 93131.4 g Winnie Narvaez [place] - [facility] 10/05/2024 [...] SNOMED-CT Code Diagnosis ICD10 Code Diagnosis Note [id number] KENNEDI MYERS DPM [place] Office [address] [facility] [address] [place] [address] 10/05/2024 14:52:10 10/05/2024 16:41:29 Metatarsalgia of right foot 5212909813 97708 M77.41 Ingrowing nail 637354998 L60.0 Onychomycosis 161767897 B35.1 Pain of to e of left foot 1407904232 53964 M79.675 Pain of to e of right foot 3388264608 05637 M79.674 Acquired h ammer toe of right foot 4417107154 840737 M20.41 Acquired h ammer toe of lesser toe of left foot 4757947142 0477957 M20.42 Health Concerns Section Related Observation LastModified by Organization Detai ls LastModified Time None Recorded Concern Status LastModified by Organization Details LastModified Time None Recorded Payers Encounter Date Sequence Insurance Name Policy Number Policy French Covered Member ID French Member ID Guarantor Name 10/05/2024 1 [facility] (MEDICARE REPLACEMENT/A DVANTAGE - PPO) [id number] Keiko López [id number] Keiko López Notes Date Note Type Note Provider Name and Address Organization Details Recorded Time 10/05/2024 text/html The patient presents today with complaints of pain associated with ingrown toenails and a painful callus on the bottom of the right foot. Of note, patient speaks american and translation was obtained through her daughter. [...] The patient recalls receiving an injection in [place] for the pain, which provided only minimal [...] recently, which may have exacerbated her symptoms. KNENEDI MYERS, MIKA [address] [place], [address], [facility] 10/05/2024 15:37:51 OBGyn Episode No OBEpisode recorded.
--- OUTSIDE RECORDS SUMMARY | 2024-11-14 14:02 | XMS_ITS | Clinical Summary ---
Author Organization [facility] Address [address] [place] [id number] Care Team Providers Care Plywood Matcher Name Role Phone Lora Taylor MD Primary Care Provide r Allergies No known active allergies Medications mirtazapine (REMERON) 7.5 mg tabletIndicatio ns:Depression, major, single episode, moderate (HC) Take 1 Tablet (7.5 mg) by mouth at bedtime. 90 Tablet 3 09/16/2024 Active esomeprazole delayed release capsule (NEXIUM) 40 mgIndications:H iatal hernia Take 1 Capsule (40 mg) by mouth once daily before a meal. 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 with restricted hearing of left ear 11/10/2024 Mixed conductive and sensori neural hearing loss of left ear with restricted hearing of right ear 11/10/2024 Tinnitus, bilateral 11/10/2024 Hiatal hernia 09/16/2024 Depression, major, single episode, moderate 01/2025 Hemorrhoids, external 09/16/2024 Sleep apnea, obstructive 09/16/2024 S/P ablation of atrial fibrillation 09/16/2024 Chronic GERD 09/16/2024 Other hyperlipidemia 09/16/2024 Resolved Problems Problem Noted Date Diagnosed Date Resolved Date History of ear surgery 11/10/202411/10 History of exposure to noise 11/10/2024 11/10/2024 Assessment & Plan (11/10/2024 5:32 PM CDT): History of acoustic trauma as reported by the patient. Encounters Date Type Department Care Team Description 11/12/2024 Orders Only [facility] [address] [place] [address] Duke Atkins MD 1 scan: (1-Ord) [place] [facility], ESOPH MOTILITY STUDY, 11/02/2024 11/11/2024 Telephone [facility] [address] [place] [address] Duke Atkins MD Multiple Problems 11/10/2024 12:30 PM CDT Office Visit [address] [phone] Alondra Voss AuD Hearing Aid (consult) 11/09/2024 10:30 AM CDT Office Visit [address] [phone] Alondra Barnhart PA Consult (asymmetrical hearing loss/obtain medical clearance for hearing aid use ) 11/09/2024 Travel 11/02/2024 Orders Only [facility] Scanner 1 scan: (1-Ord) [facility], ESOPHAGEAL MOTILITY STUDY, 11/02/2024 11/02/2024 Orders Only [facility] Scanner 1 scan: (1-Ord) [facility], ESOPH MOTILITY STUDY, 11/02/2024 10/30/2024 Orders Only [facility] Scanner 1 scan: (1-Ord) [facility], ESOPH MOTILITY STUDY, 10/30/2024 10/15/2024 9:40 AM SENIOR NETWORK SECURITY ENGINEER Office Visit [address] [place] [address] Lora Taylor MD Medication Management (stopped taking cholesterol medication - prescribed by chemistry intern. Was having dizzy spells- so has quit. ) 10/15/2024 Travel 10/08/2024 8:30 AM SENIOR NETWORK SECURITY ENGINEER Office Visit [address] [place] [address] Blas Moreno, Mike Hearing Problem 10/08/2024 Travel 09/29/2024 10:00 AM SENIOR NETWORK SECURITY ENGINEER Office Visit [facility] [address] [phone] Duke Atkins MD Consult (GERD) 09/29/2024 8:37 AM SENIOR NETWORK SECURITY ENGINEER - 09/29/2024 11:59 PM SENIOR NETWORK SECURITY ENGINEER Hospital Encounter [facility] [address] [place] [address] Duke Atkins MD Hiatal hernia 09/29/2024 Telephone [facility] [address] [address] Duke Atkins MD RDC Care Coordination 09/29/2024 Travel 09/16/2024 1:50 PM SENIOR NETWORK SECURITY ENGINEER Office Visit [address] [place] [address] Lora Taylor MD Medicare ANNUAL (subsequent) Visit (69 yo Female/Has some memory issues./After eating she will get a pain in the chest. Makes it hard to breathe. Was seen in the ER/Has a hernia that gives her reflux. Has been using a OTC reflux tablet she bought at [employer], unsure of name/Possible hemorrhoid, would like visual exam /Becomes easily irritated or upset. Was never like this before.) 09/16/2024 Travel 09/06/2024 Telephone [facility] [address] [phone] Duke Atkins MD Reflux (Pre Visit Chart prep) from Last 3 Months Immunizations Immunization Administration Dates Next Due Tdap 02/06/2022 Social History Tobacco Use Types Packs/Day Years Used Date Smoking Tobacco: Never Smokeless Tobacco: Never Tobacco Cessation:Counseling Given: Yes Alcohol Use Standard Drinks/Week Comments Not Currently 0 (1 standard drink = 0.6 oz pur e alcohol) PHQ-2 Answer Date Recorded PHQ-2 TOTAL SCORE 4 09/16/2024 Social Connections Answer Date Recorded Do you often feel lonely or isolated from those around you? 0 09/16/2024 Financial Resource Strain Answer Date R ecorded Difficulty of Paying Living Expenses 3 09/16/2024 Difficulty of Paying Living Expenses Not on file 09/16/2024 Food Insecurity Answer Date Recorded Do you worry your food will run out before you are able to buy more? 1 09/16/2024 Transportation Needs Answer Date Record ed Does lack of transportation keep you from medica l appointments? 1 09/16/2024 Does lack of transportation keep you from work, meetings or getting things that you need? 1 09/16/2024 Housing Stability Answer Date Recorded What is your housing situation today? 1 09/16/2024 Interpersonal Safety Answer Date Record ed Are you being hit, kicked, p ushed or yelled at (see row info)? No 08/07/2024 Interpersonal Safety Abuse 12 - 18 Not on file 08/07/2024 Interpersonal Safety Ambulatory Vulnerability No t on file 08/07/2024 Utilities Answer Date Recorded Do you have trouble paying f or utilities (for example, heat, electricity, water, phone)? 1 09/16/2024 Comments No Sex and Gender Information Value Date Recorded Sex Assigned at Not on file Legal Sex Female 11:53 AM CDT Gender Identity Not on file Sexual Orientation Not on file Obstetrics History Last Filed Vital Signs Vital Sign Reading Time Taken Comments Blood Pressure 105/69 10/15/2024 9:46 AM SENIOR NETWORK SECURITY ENGINEER Pulse 73 10/15/2024 9:46 AM SENIOR NETWORK SECURITY ENGINEER Temperature 37.3 C (99.2 F) 09/29/2024 9:43 AM SENIOR NETWORK SECURITY ENGINEER Respiratory Rate 16 09/29/2024 9:43 AM SENIOR NETWORK SECURITY ENGINEER Oxygen Saturation 96% 10/15/2024 9:46 AM SENIOR NETWORK SECURITY ENGINEER Inhaled Oxygen Concentration - - Weight 94.6 kg (208 lb 9.6 oz) 10/15/2024 9:46 A M SENIOR NETWORK SECURITY ENGINEER Height 154.9 cm (5' 1) 09/16/2024 2:37 PM SENIOR NETWORK SECURITY ENGINEER Body Mass Index 39.41 09/16/2024 2:37 PM SENIOR NETWORK SECURITY ENGINEER Plan of Treatment Upcoming Encounters Date Type Department Care Team (Latest Contact Info) Description 12/01/2024 1:30 PM CDT Hospital Encounter [facility] [address] [place] [address] Duke Atkins MD [address] [place] [address] 12/01/2024 1:30 PM CDT - 12/01/2024 4:[address] [facility] [address] [place] [address] Duke Atkins MD [address] [place] [address] LAPAROSCOPIC PARAESOPHAGEAL HIATAL HERNIA REPAIR WITH PARTIAL FUNDOPLICATION (WRAP) Scheduled Procedures Name Priority Associated Diagnoses Date/Ti me LAPAROSCOPIC PARAESOPHAGEAL HIATAL HERNIORRHAPHY Tier 2 Paraesophageal hernia 12/01/2024 1:30 PM CDT Health Maintenance Due Date Last Done Comments Hepatitis C screening for ag e 18-79 01/09/1974 Pneumococcal series for age 50+ (1 of 2 - PCV) 01/09/1975 Mammogram for age 45-75 01/09/2001 Zoster (shingles) series for age 50+ (1 of 2) 01/09/2006 RSV vaccine for adults or (1 - Risk 60-74 years 1-dose series) 2016 DEXA/DXA scan for age 65+ 01/09/2021 Fecal testing non-DNA (FIT,FOBT,iFOBT) for age 45-75 08/02/2023 08/02/2022 COVID-19 vaccine series ( season) 2024 Influenza Vaccine (Season Ended) 2025 BMI (ht and wt on same day) for age 18+ 09/16/2025 09/16/2024, 01/29/2024, 02/13/2021 Depression screening for age 12+ 09/16/2025 09/16/2024, 03/01/2021, 03/01/2021, Additional history exists Medicare Wellness for age 65+ 09/17/2025 09/16/2024 Lipids for age 45-75 10/15/2029 10/15/2024 Tetanus booster 02/07/2032 02/06/2022 Tdap Completed 02/06/2022 Procedures Procedure Name Priority Date/Time Associated Diagnosis Comments HEARING AID MEDICAL CLEARANCE Routine 11/09/2024 11:34 AM CDT Sensorineural hearing loss (SNHL) of right ear with restricted hearing of left ear Mixed conductive and sensorineural hearing loss of left ear with restricted hearing of right ear ESOPHAGEAL MOTILITY STUDY Routine 11/02/2024 12:00 AM CDT Paraesophageal hernia Esophageal dysmotility Schatzki ring of distal esophagus Large hiatal hernia SCAN-DIAGNOSTIC REPORT 11/02/2024 12:00 AM CDT SCAN-DIAGNOSTIC REPORT 11/02/2024 12:00 AM CDT SCAN-DIAGNOSTIC REPORT 10/30/2024 12:00 AM CDT CBC WITH AUTO DIFFERENTIAL Routine 10/15/2024 10:48 AM SENIOR NETWORK SECURITY ENGINEER Chronic GERD LIPID PANEL W REFLEX MEASURED LDL Routine 10/15/2024 10:48 AM SENIOR NETWORK SECURITY ENGINEER Lipid screening VITAMIN B12 Routine 10/15/2024 10:48 AM SENIOR NETWORK SECURITY ENGINEER B12 deficiency XR ESOPHAGUS Routine 09/29/2024 9:14 AM SENIOR NETWORK SECURITY ENGINEER Hiatal hernia OCCULT BLOOD IFOBT STOOL Routine 08/02/2022 12:54 PM SENIOR NETWORK SECURITY ENGINEER Screening for colorectal cancer from Last 3 Months or Most Recently Relevant to Health Maintenance Results * SCAN-DIAGNOSTIC REPORT (11/02/2024 12:00 AM CDT) us Scanner OTHER Final Result * SCAN-DIAGNOSTIC REPORT (11/02/2024 12:00 AM CDT) us Scanner OTHER Final Result * ESOPHAGEAL MOTILITY STUDY (11/02/2024 12:00 AM CDT) us Duke Atkins MD GI PROCEDURE ORD Final R esult * SCAN-DIAGNOSTIC REPORT (10/30/2024 12:00 AM CDT) us Scanner OTHER Final Result * (ABNORMAL) LIPID PANEL W REFLEX MEASURED LDL (10/15/2024 10:48 AM SENIOR NETWORK SECURITY ENGINEER) CHOLESTEROL, TOTAL 254(H) <200 mg/dL [facility] HDL CHOLESTEROL 32(L) > OR = 50 mg/dL [facility] TRIGLYCERIDES 304(H) <150 mg/dL [facility] Comment: If a non-fasting specimen was collected, consider repeat triglyceride testing on a fasting specimen if clinically indicated. Vivien et al. J. of Clin. Lipidol. 2015;9:129-169. LDL-CHOLESTEROL 170(H) mg/dL (calc) [email or web address] Comment: Reference range: <100 Desirable range <100 mg/dL for primary prevention; <70 mg/dL for patients with CHD or diabetic patients with > or = 2 CHD risk factors. LDL-C is now calculated using the Wander-Ruiz calculation, which is a validated novel method providing better accuracy than the Friedewald equation in the estimation of LDL-C. Wander SS et al. JESSY. 2013;310(19): 2653-9820 (http://education.Public Mobile/faq/IBN465) CHOL/HDLC RATIO 7.9(H) <5.0 (calc) [email or web address] NON HDL CHOLESTEROL 222(H) <130 mg/dL (calc) [email or web address] Comment: Non-HDL level > or = 220 is very high and may indicate genetic familial hypercholesterolemia (FH). Clinical assessment and measurement of blood lipid levels should be considered for all first-degree relatives of patients with an FH diagnosis. For patients with diabetes plus 1 major ASCVD risk factor, treating to a non-HDL-C goal of <100 mg/dL (LDL-C of <70 mg/dL) is considered a therapeutic option. Blood BLOOD SPECIMEN / Unknown 10/15/2024 10:48 AM SENIOR NETWORK SECURITY ENGINEER 10/15/2024 10:48 AM SENIOR NETWORK SECURITY ENGINEER us Lora Taylor MD CHEMISTRY Final Result [employer] [facility] [address] [place] [address], [place] [facility] [address] [place] [address] * CBC AND DIFFERENTIAL (10/15/2024 10:48 AM SENIOR NETWORK SECURITY ENGINEER) [facility] WHITE BLOOD CELL COUNT 5.6 3.8 - 10.8 Thousand/u L [email or web address] RED BLOOD CELL COUNT 4.52 3.80 - 5.10 Million/uL [email or web address] HEMOGLOBIN 13.8 11.7 - 15.5 g/dL [facility] HEMATOCRIT 42.4 35.0 - 45.0 % [facility] MCV 93.8 80.0 - 100.0 fL [email or web address] MCH 30.5 27.0 - 33.0 pg [facility] MCHC 32.5 32.0 - 36.0 g/dL [email or web address] Comment: For adults, a slight decrease in the calculated MCHC value (in the range of 30 to 32 g/dL) is most likely not clinically significant; however, it should be interpreted with caution in correlation with other red cell parameters and the patient's clinical condition. RDW 13.1 11.0 - 15.0 % [email or web address] PLATELET COUNT 215 140 - 400 Thousand/u L [email or web address] MPV 11.7 7.5 - 12.5 fL [email or web address] ABSOLUTE NEUTROPHILS 2,610 1,500 - 7,800 cells/uL [facility] ABSOLUTE LYMPHOCYTES 2,178 850 - 3,900 cells/uL [facility] ABSOLUTE MONOCYTES 504 200 - 950 cells/uL [facility] ABSOLUTE EOSINOPHILS 269 15 - 500 cells/uL [facility] ABSOLUTE BASOPHILS 39 0 - 200 cells/uL [facility] NEUTROPHILS 46.6 % [facility] LYMPHOCYTES 38.9 % [facility] MONOCYTES 9.0 % [facility] EOSINOPHILS 4.8 % [facility] BASOPHILS 0.7 % [facility] Blood BLOOD SPECIMEN / Unknown 10/15/2024 10:48 AM SENIOR NETWORK SECURITY ENGINEER 10/15/2024 10:48 AM SENIOR NETWORK SECURITY ENGINEER Lora Taylor MD HEMATOLOGY Final Result Performing Organization Address [facility]/ZIP Co de Phone Number [employer] [facility] [address] [place] [address], [place] [phone] [facility] [address] [place] [address] * VITAMIN B12 (10/15/2024 10:48 AM SENIOR NETWORK SECURITY ENGINEER) VITAMIN B12 522 200 - 1,100 pg/mL [facility] Blood BLOOD SPECIMEN / Unknown 10/15/2024 10:48 AM SENIOR NETWORK SECURITY ENGINEER 10/15/2024 10:48 AM SENIOR NETWORK SECURITY ENGINEER Lora Taylor MD CHEMISTRY Final Result Performing Organization Address [facility] Co de Phone Number [employer] [facility] [address] [place] [address], [place] [phone] [facility] [address] [place] [phone] * XR ESOPHAGUS (09/29/2024 9:14 AM SENIOR NETWORK SECURITY ENGINEER) Anatomical Region Laterality Modality Esophagus Digital Radiogra phy Addenda Addendum by Tommie Troncoso MD on 09/29/2024 9:37 AM SENIOR NETWORK SECURITY ENGINEER No delay in passage of 13 mm barium tablet through the esophagus. Impressions 09/29/2024 9:36 AM SENIOR NETWORK SECURITY ENGINEER 1. Large hiatal hernia. Mild distal esophageal stricture above the GE junction. 2. Prominent distal Schatzki's ring. 3. Dysmotility. Retention of contrast in the esophagus limits evaluation for GE reflux. Narrative 09/29/2024 9:36 AM SENIOR NETWORK SECURITY ENGINEER INDICATION Dysphagia. TECHNIQUE Esophagram single contrast. Fluoroscopy time 54 seconds. Thin barium liquid and 13 mm tablet. FINDINGS: Esophagus: Moderately patulous with a prominent distal Schatzki's ring. Mild stricture above the GE junction. GE junction: Large hiatal hernia. Left-sided paraesophageal component and mild rotation in the hernia. Stomach: The distal stomach is unremarkable Motility: Abnormal. Stasis. Retention in the esophagus limits evaluation for GE reflux. Duke Atkins MD FLUOROSCOPY Edited R esult - Final * OCCULT BLOOD IFOBT STOOL (08/02/2022 12:54 PM SENIOR NETWORK SECURITY ENGINEER) STOOL BLOOD ,IFOBT Negative Negative 08/02/2022 2:10 PM SENIOR NETWORK SECURITY ENGINEER [facility] Stool STOOL SPECIMEN / Unknown Non-Blood / Unknown 08/02/2022 12:54 PM SENIOR NETWORK SECURITY ENGINEER 08/02/2022 12:54 PM SENIOR NETWORK SECURITY ENGINEER Sheri Boston DO LABORATORY Final Result [facility] [address] [place] [address], [place] [phone] from Last 3 Months or Most Recently Relevant to Health Maintenance Insurance MEDICARE PART A HB ONLY [facility] Care Teams Plywood Matcher Relationship Specialty Start Date End Date Lora Taylor MD [address] [place] [address] PCP - General Family Practice 08/12/24
--- NOTE | 2024-11-14 14:32 | ED.NURSE ---
Patient declines strep test and triple swab
--- NOTE | 2024-11-14 14:40 | ED_ITS ---
HPI - General Adult General Chief complaint: Sore Throat Stated complaint: Cough Time Seen by Provider: 11/14/24 14:07 Source: patient Mode of arrival: ambulatory Limitations: no limitations History of Present Illness HPI narrative: 69-year-old female coming in today with a sore throat for 3 weeks. Patient states that 3 weeks ago she had a procedure where a tube was placed into her nose down into her throat. She states that during the procedure she was having a lot of pain and she told the nurse who was doing it to stop with the did not. She is also concerned that the tube was not properly sterilized. She has had a sore throat since then. She states that 1 night she had a fever, unclear how high it was. Unclear if it was measured. Patient is not sure where the procedure was done. She states that was done to look at a hernia. She states that she talked to a prior healthcare provider in [place] who told her that perhaps the damage her vocal cords and she was told to come to the emergency department for evaluation. She states that sometimes it is painful to eat. She is able to drink without difficulty. She feels that her voice is scratchy. The pain comes and goes. Tylenol helps. Patient is quite upset that the person who did the procedure was not properly qualified. Related Data Previous Rx's ?Medication ?Instructions ?Recorded omeprazole 20 mg capsule,delayed 20 mg PO QDAY #90 caps 05/18/24 release rosuvastatin 20 mg tablet 20 mg PO QDAY #90 tabs 05/18/24 mirtazapine 7.5 mg tablet 7.5 mg PO QHS #30 tabs 06/23/24 Allergies Allergy/AdvReac Type Severity Reaction Status Date / Time No Known Allergies Allergy Verified 11/14/24 14:13 Review of Systems Status of ROS: Reports: 6 or more systems reviewed and unremarkable except as noted in History and below [facility] Medical History Paroxysmal atrial fibrillation ?I48.0 - Paroxysmal atrial fibrillation (ICD-10) History of vitamin D deficiency ?Z86.39 - Personal history of other endocrine, nutritional and metabolic disease (ICD-10) Surgical History History of surgery on lower extremity ?Z98.890 - Other specified postprocedural states (ICD-10) History of 3 sections ?Z98.891 - History of uterine scar from previous surgery (ICD-10) History of arthroscopy of right knee (06/2021) ?Z98.890 - Other specified postprocedural states (ICD-10) Family History Brother Prostate cancer Throat cancer Mother Tremors of nervous system Social History Narrative: . Moved to this area from [place] in the fall of 2020 to be closer to family. Originally from [place] I believe. Never smoker. Activity very limited. What is your current living situation?: I have a place to live at present, but am concerned about future Problems where you live: carbon monoxide detectors missing or not working In the past 12 months, utilities in danger of being shut off: no In past 12 months, lack of transportation kept you from medical appts, meetings, work, or getting things needed for daily living: no In the past 12 mos, have been you worried that your food would run out before you had money to buy more?: sometimes true In the past 12 mos, the food you bought just didn't last and you didn't have money to buy more?: sometimes true Smoking Status: Never smoker Do you use any of these nicotine containing products: None Second hand tobacco smoke exposure: No How often do you have a drink containing alcohol: never How often do you have six or more drinks on one occasion: Never AUDIT-C Alcohol total score: 0 Non-prescribed substance use: denies use How often does anyone, including family, friends and others, physically hurt you : rarely How often does anyone, including family, friends and others, insult or talk down to you: rarely How often does anyone, including family, friends and others, threaten you with harm: sometimes How often does anyone, including family, friends and others, scream or curse at you: sometimes service: No Health Related Social Needs: Inadequate housing (Z59.1), housing instability, housed, with risk of homelessness (Z59.811), food insecurity (Z59.41) and Other personal risk factors, not elsewhere classified (Z91.89) Exam Narrative: Exam Narrative: Overweight, well-developed patient in no acute distress. Alert and oriented. Answers questions appropriately. Mood and affect are appropriate. Patient speaks in full sentences without needing to catch her breath. Speech is not slurred or pressured. Voice is not hoarse. HEENT: Normocephalic atraumatic. Pupils are equally round reactive to light. Extraocular muscles are intact. Conjunctivae are moist without any icterus noted. Moist mucous membranes. Posterior pharynx is normal. Neck is soft without any lymphadenopathy or thyromegaly. No masses are appreciated. Skin: Well perfused without any obvious rashes. Const: Vital Signs, click to edit/add: Vital Signs - 24 hr 11/14/24 14:02 Temperature 97.5 F L Pulse Rate [Right Pulse Oximeter] 90 Respiratory Rate 18 Blood Pressure [Ri ght Forearm] 144/79 H Pulse Oximetry 93 Oxygen Delivery Me thod Room Air Course Course ED Course: Discussed with the patient that we would not be able to insert a camera into the back of her throat to visualize her vocal cords to assess for any damage in the emergency department. Recommend she follow up with ENT. Did offer the patient to look for other causes of sore throat including COVID, strep. Patient declined all other investigations. Vital Signs Vital signs: Initial Vital Signs Temperature 97.5 F L 11/14/24 14:02 Temperature Source Temporal Artery Scan 11/14/24 14:02 Pulse Rate 90 11/14/24 14:02 Pulse Rhythm Regular 11/14/24 14:02 Pulse Strength 3+ Normal 11/14/24 14:02 Respiratory Rate 18 11/14/24 14:02 Blood Pressure 144/79 H 11/14/24 14:02 Blood Pressure Mean 100 11/14/24 14:02 Blood Pressure Position Sitting 11/14/24 14:02 Pulse Oximetry 93 11/14/24 14:02 Oxygen Delivery Method Room Air 11/14/24 14:02 Vital Signs Temperature 97.5 F L 11/14/24 14:02 Pulse Rate 90 11/14/24 14:02 Respiratory Rate 18 11/14/24 14:02 Blood Pressure 144/79 H 11/14/24 14:02 Pulse Oximetry 93 11/14/24 14:02 Oxygen Delivery Method Room Air 11/14/24 14:02 Temperature 97.5 F L 11/14/24 14:02 Pulse Rate 90 11/14/24 14:02 Respiratory Rate 18 11/14/24 14:02 Blood Pressure 144/79 H 11/14/24 14:02 Pulse Oximetry 93 11/14/24 14:02 Oxygen Delivery Method Room Air 11/14/24 14:02 Medical Decision Making MDM Narrative Medical decision making narrative: 69-year-old female with a sore throat status post procedure that required some kind of nasogastric tube or camera. Follow-up with ENT. Discharge Plan Discharge Clinical Impression: Sore throat Patient Disposition: Home, Self-Care Condition: Stable Additional Instructions: Recommend you follow-up with ENT physician. Phone number to make that appointment will be provided to you upon discharge. You can otherwise follow-up at the place where your procedure was done. Prescriptions: No Action omeprazole 20 mg capsule,delayed release(DR/EC) 20 mg PO QDAY Qty: 90 3RF rosuvastatin 20 mg tablet 20 mg PO QDAY Qty: 90 3RF mirtazapine 7.5 mg tablet 7.5 mg PO QHS Qty: 30 1RF Follow Up/Referrals: Moses Mota MD [Primary Care Provider] - Stand Alone Forms: [email or web address] Info Instructions
--- OUTSIDE RECORDS SUMMARY | 2024-11-14 14:55 | XMS_ITS | Clinical Summary ---
Author Organization [facility] Address [address] [place] [address] Care Team Providers Care Spring Machine Operator Name Role Phone Lora Taylor MD Primary [...] Department Care Team Description 11/12/2024 Orders Only [facility] [address] [place] [address] Duke Atkins MD 1 scan: (1-Ord) [place] GASTROENTEROLOGY, ESOPH MOTILITY STUDY, 11/02/2024 11/11/2024 Telephone [facility] [address] [place] [address] Duke Atkins MD Multiple Problems 11/10/2024 12:30 PM CDT Office Visit [address] [phone] Alondra Voss AuD Hearing Aid (consult) 11/09/2024 10:30 AM CDT Office Visit [address] [phone] Alondra Barnhart PA Consult (asymmetrical hearing loss/obtain medical clearance for hearing aid use ) 11/09/2024 Travel 11/02/2024 Orders Only [facility] Scanner 1 scan: (1-Ord) [facility], ESOPHAGEAL MOTILITY STUDY, 11/02/2024 11/02/2024 Orders Only [facility] Scanner 1 scan: (1-Ord) [facility], ESOPH MOTILITY STUDY, 11/02/2024 10/30/2024 Orders Only [facility] Scanner 1 scan: (1-Ord) [facility], ESOPH MOTILITY STUDY, 10/30/2024 10/15/2024 9:40 AM PATIENT ADMITTING CLERK Office Visit [facility] [address] [place] [address] Lora Taylor MD Medication Management (stopped taking cholesterol medication - prescribed by [facility]. Was having dizzy spells- so has quit. ) 10/15/2024 Travel 10/08/2024 8:30 AM PATIENT ADMITTING CLERK Office Visit [facility] [address] [place] [address] Blas Moreno, Mike Hearing Problem 10/08/2024 Travel 09/29/2024 10:00 AM PATIENT ADMITTING CLERK Office Visit [facility] [address] [phone] Duke Atkins MD Consult (GERD) 09/29/2024 8:37 AM PATIENT ADMITTING CLERK - 09/29/2024 11:59 PM PATIENT ADMITTING CLERK Hospital Encounter [facility] [address] [place] [address] Duke Atkins MD Hiatal hernia 09/29/2024 Telephone [facility] [address] [address] Duke Atkins MD RDC Care Coordination 09/29/2024 Travel 09/16/2024 1:50 PM PATIENT ADMITTING CLERK Office Visit [facility] [address] [place] [address] Lora Taylor MD Medicare ANNUAL (subsequent) Visit (69 yo Female/Has some memory issues./After eating she will get a pain in the chest. Makes it hard to breathe. Was seen in the ER/Has a hernia that gives her reflux. Has been using a OTC reflux tablet she bought at [employer], unsure of name/Possible hemorrhoid, would like visual exam /Becomes easily irritated or upset. Was never like this before.) 09/16/2024 Travel 09/06/2024 Telephone [facility] [address] [phone] Duke Atkins MD Reflux (Pre Visit Chart [...] Comments Blood Pressure 105/69 10/15/2024 9:46 AM PATIENT ADMITTING CLERK Pulse 73 10/15/2024 9:46 AM PATIENT ADMITTING CLERK Temperature 37.3 C (99.2 F) 09/29/2024 9:43 AM PATIENT ADMITTING CLERK Respiratory Rate 16 09/29/2024 9:43 AM PATIENT ADMITTING CLERK Oxygen Saturation 96% 10/15/2024 9:46 AM PATIENT ADMITTING CLERK Inhaled Oxygen Concentration - - Weight 94.6 kg (208 lb 9.6 oz) 10/15/2024 9:46 A M PATIENT ADMITTING CLERK Height 154.9 cm (5' 1) 09/16/2024 2:37 PM PATIENT ADMITTING CLERK Body Mass Index 39.41 09/16/2024 2:37 PM PATIENT ADMITTING CLERK Plan of Treatment Upcoming Encounters Date Type Department Care Team (Latest Contact Info) Description 12/01/2024 1:30 PM CDT Hospital Encounter [facility] [address] [place] [address] Duke Atkins MD [address] [place] [address] 12/01/2024 1:30 PM CDT - 12/01/2024 4:10 PM CDT Surgery [facility] [address] [place] [address] Duke Atkins MD [address] [place] [address] LAPAROSCOPIC PARAESOPHAGEAL HIATAL HERNIA REPAIR WITH PARTIAL [...] WITH AUTO DIFFERENTIAL Routine 10/15/2024 10:48 AM PATIENT ADMITTING CLERK Chronic GERD LIPID PANEL W REFLEX MEASURED LDL Routine 10/15/2024 10:48 AM PATIENT ADMITTING CLERK Lipid screening VITAMIN B12 Routine 10/15/2024 10:48 AM PATIENT ADMITTING CLERK B12 deficiency XR ESOPHAGUS Routine 09/29/2024 9:14 AM PATIENT ADMITTING CLERK Hiatal hernia OCCULT BLOOD IFOBT STOOL Routine 08/02/2022 12:54 PM PATIENT ADMITTING CLERK Screening for colorectal cancer from Last 3 [...] W REFLEX MEASURED LDL (10/15/2024 10:48 AM PATIENT ADMITTING CLERK) CHOLESTEROL, TOTAL 254(H) <200 mg/dL [facility] HDL CHOLESTEROL 32(L) > OR = 50 mg/dL [facility] TRIGLYCERIDES 304(H) <150 mg/dL [facility] Comment: If a non-fasting specimen was collected, consider repeat triglyceride testing on a fasting specimen if clinically indicated. Vivien et al. J. of Clin. Lipidol. 2015;9:129-169. LDL-CHOLESTEROL 170(H) mg/dL (calc) [facility] Comment: Reference range: <100 Desirable range <100 mg/dL for primary prevention; <70 mg/dL for patients with CHD or diabetic patients with > or = 2 CHD risk factors. LDL-C is now calculated using the Wander-Ruiz calculation, which is a validated novel method providing better accuracy than the Friedewald equation in the estimation of LDL-C. Wander SS et al. JESSY. 2013;310(19): 4296-7206 (http://education.Hansoft/faq/PQW606) CHOL/HDLC RATIO 7.9(H) <5.0 (calc) [facility] NON HDL CHOLESTEROL 222(H) <130 mg/dL (calc) [facility] Comment: Non-HDL level > or [...] BLOOD SPECIMEN / Unknown 10/15/2024 10:48 AM PATIENT ADMITTING CLERK 10/15/2024 10:48 AM PATIENT ADMITTING CLERK us Lora Taylor MD CHEMISTRY Final Result [facility] [address] [place] [address], [facility] [address] [place] [address] * CBC AND DIFFERENTIAL (10/15/2024 10:48 AM PATIENT ADMITTING CLERK) [facility] WHITE BLOOD CELL COUNT 5.6 3.8 - 10.8 Thousand/u L [facility] RED BLOOD CELL COUNT 4.52 3.80 - 5.10 Million/uL [facility] HEMOGLOBIN 13.8 11.7 - 15.5 g/dL [facility] HEMATOCRIT 42.4 35.0 - 45.0 % [facility] MCV 93.8 80.0 - 100.0 fL [facility] MCH 30.5 27.0 - 33.0 pg [facility] MCHC 32.5 32.0 - 36.0 g/dL [facility] Comment: For adults, a slight decrease in the calculated MCHC value (in the range of 30 to 32 g/dL) is most likely not clinically significant; however, it should be interpreted with caution in correlation with other red cell parameters and the patient's clinical condition. RDW 13.1 11.0 - 15.0 % [facility] PLATELET COUNT 215 140 - 400 Thousand/u L [facility] MPV 11.7 7.5 - 12.5 fL [facility] ABSOLUTE NEUTROPHILS 2,610 1,500 - [...] BLOOD SPECIMEN / Unknown 10/15/2024 10:48 AM PATIENT ADMITTING CLERK 10/15/2024 10:48 AM PATIENT ADMITTING CLERK Lora Taylor MD HEMATOLOGY Final Result Performing Organization Address [facility]/ZIP Co de Phone Number [facility] [address] [place] [address], [place] [phone] [facility] [address] [place] [address] * VITAMIN B12 (10/15/2024 10:48 AM PATIENT ADMITTING CLERK) VITAMIN B12 522 200 - 1,100 pg/mL [facility] Blood BLOOD SPECIMEN / Unknown 10/15/2024 10:48 AM PATIENT ADMITTING CLERK 10/15/2024 10:48 AM PATIENT ADMITTING CLERK Lora Taylor MD CHEMISTRY Final Result Performing Organization Address [facility] Co de Phone Number [facility] [address] [place] [address], [place] [phone] [facility] [address] [place] [phone] * XR ESOPHAGUS (09/29/2024 9:14 AM PATIENT ADMITTING CLERK) Anatomical Region Laterality Modality Esophagus [facility] Addenda Addendum by Tommie Troncoso MD on 09/29/2024 9:37 AM PATIENT ADMITTING CLERK No delay in passage of 13 mm barium tablet through the esophagus. Impressions 09/29/2024 9:36 AM PATIENT ADMITTING CLERK 1. Large hiatal hernia. Mild distal esophageal stricture above the GE junction. 2. Prominent distal Schatzki's ring. 3. Dysmotility. Retention of contrast in the esophagus limits evaluation for GE reflux. Narrative 09/29/2024 9:36 AM PATIENT ADMITTING CLERK INDICATION Dysphagia. TECHNIQUE Esophagram single contrast. Fluoroscopy [...] OCCULT BLOOD IFOBT STOOL (08/02/2022 12:54 PM PATIENT ADMITTING CLERK) STOOL BLOOD ,IFOBT Negative Negative 08/02/2022 2:10 PM PATIENT ADMITTING CLERK [facility] Stool STOOL SPECIMEN / Unknown Non-Blood / Unknown 08/02/2022 12:54 PM PATIENT ADMITTING CLERK 08/02/2022 12:54 PM PATIENT ADMITTING CLERK Sheri Boston DO LABORATORY Final Result [facility] [address] [place] [address], [place] [phone] from Last 3 Months or Most Recently Relevant to Health Maintenance Insurance MEDICARE PART A HB ONLY [facility] Care Teams Spring Machine Operator Relationship Specialty Start Date End Date Lora Taylor MD [address] [place] [address] PCP - General Family Practice 08/12/24
--- OUTSIDE RECORDS SUMMARY | 2024-11-14 14:55 | XMS_ITS | Clinical Summary ---
Author Organization [facility] Address [address] , [address] [place] [address] Phone Care Team Providers Care Physical Science Technician Name Role Phone Leandra Song Unavailable Unavailable Conditions or Problems Problem Name Problem Code Onset Date Status Entry Date Provider Comment Standard Description Annotate Headache, post traumatic [id number] (SNOMED CT) Active Jordi Burrows MD Posttraumatic headache Medications Medication Instructions Start Date Stop Date Generic Name NDC Provider SERTRALINE HCL 100 MG TABS sertraline [id number] Jordi Burrows MD OMEPRAZOLE 40 MG CPDR omeprazole [id number] Jordi Burrows MD ROSUVASTATIN CALCIUM 20 MG TABS rosuvastatin [id number] Jordi Burrows MD OMEPRAZOLE 10 MG CPDR Take 1 Capsule (10 mg) by mouth once daily before a meal. omeprazole [id number] QIEUSER QIEUSER GABAPENTIN 100 MG CAPS Take 2 caps at night of 1 week, then increase to 3 caps(300mg) at night. gabapentin [id number] QIEUSER QIEUSER VITAMIN B-12 1000 MCG TABS Take 1 Tablet (1,000 mcg) by mouth once daily. Taking 1 tablet a week cyanocobalamin (vitamin b-12) [id number] QIEUSER QIEUSER Medications Administered No information available. 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 Immunizations No information available. Advance Directives No information available.
== END 2024-11-14 14:57 | disposition home or self-care (01) ==
LOC: ED 14:53
PROVIDERS: Emergency Provider Family Medicine
DX: J02.9 Acute pharyngitis, unspecified (principal)
CPT/HCPCS: 85025; 86140; 87631; 87651; 99283